=== PATIENT | female | born 1955 | race Caucasian/White ===

== ENCOUNTER → 2018-07-31 | Outpatient (CLI) | payer BC ==
[2018-07-31 11:22] LABS: HCT 43.8 % (34.0-46.0); HGB 14.1 gm/dL (11.4-16.0); MCH 29.5 pg (25.0-35.0); MCHC 32.2 g/dL (31.0-37.0); MCV 91.7 fL (80.0-100.0); Platelet Count 270 k/uL (150-450); RBC 4.78 m/uL (3.80-5.40); RDW 12.9 % (11.5-15.5)
[2018-07-31 11:32] LABS: ALT 24 U/L (9-52); AST 18 U/L (14-36); Albumin 4.2 g/dL (3.5-5.0); Alkaline Phosphatase 97 U/L (38-126); Anion Gap 7 mmol/L; Blood Urea Nitrogen 16 mg/dL (7-17); Calcium 10.4 mg/dL (8.4-10.2); Carbon Dioxide 27 mmol/L (22-30); Chloride 104 mmol/L (98-107); Glucose 178 mg/dL (74-99); Sodium 138 mmol/L (137-145); Total Bilirubin 0.6 mg/dL (0.2-1.3); Total Protein 7.2 g/dL (6.3-8.2)
[2018-07-31 11:39] LABS: INR 0.9 (<1.2); Partial Thromboplastin Time 23.1 sec (22.0-30.0); Prothrombin Time 9.7 sec (9.0-12.0)
[2018-07-31 11:44] LABS: Appearance,Urine Clear (Clear); Bacteria,Urine Rare /hpf; Bilirubin,Urine Negative (Negative); Blood,Urine Negative (Negative); Color,Urine Yellow; Glucose,Urine (UA) Negative (Negative); Ketones,Urine Negative (Negative); Leukocyte Esterase,Urine Large (Negative); Mucus,Urine Rare /hpf; Nitrite,Urine Negative (Negative); PH, Urine 5.5 (5.0-8.0); Protein,Urine Negative (Negative); RBC,Urine 4 /hpf (0-5); Specific Gravity,Urine 1.019 (1.001-1.035); Squamous Epithelial Cell,Urine 3 /hpf (0-4); Urobilinogen,Urine <2.0 mg/dL (<2.0); WBC,Urine 70 /hpf (0-5)
== END | disposition home or self-care (01) ==
LOC: LABPAT 10:01
PROVIDERS: ATTEND Orthopaedic Surgery
DX: Z01.812 Encounter for preprocedural laboratory examination (principal); M16.12 Unilateral primary osteoarthritis, left hip; Z79.01 Long term (current) use of anticoagulants
CPT/HCPCS: 36415; 80053; 81001; 85027; 85610; 85730; 87070

== ENCOUNTER 2018-08-06 06:07 | Inpatient (IN) | payer BC ==
[2018-08-01 14:24] VITALS: BMI 26.1
[~2018-08-06 06:07] MED LIST: ACETAMINOPHEN TAB 500 MG TAB PO ONE; DEXAMETHASONE SOD PHOSPHATE 10 MG/ML 1 ML VIAL IV ONE; MELOXICAM 7.5 MG TAB PO ONE; MIDAZOLAM (PF) 2 MG/2 ML VIAL IV PRN; ONDANSETRON 4 MG/2 ML VIAL IVP ONE; ROPIVACAINE 246.25 MG, EPINEPHrine 0.5 MG, KETOROLAC 30 MG, cloNIDine HCL/PF 80 MCG, WA... MISCELLANE ONE; SCOPOLAMINE 1.5MG/72HR PATCH TRANSDERM ONE; TRANEXAMIC ACID 1,000 MG in SODIUM CHLORIDE 0.9% 100 ML IVPB ONE; ceFAZolin IN SWFI 2 GM/20 ML SYRINGE IVP ONE; fentaNYL (PF) 50 MCG/ML 2 ML AMP IV PRN
[2018-08-06] MEDS: LACTATED RINGERS 1,000 ML IV SCH (08:06)
[2018-08-06] MEDS ORDERED: LIDOCAINE 1% 20 ML VIAL (10MG/ML) FOR IV START INTRADERMA ONE (08:13)
[2018-08-06 08:22] LABS: Glucose,Whole Blood 160 mg/dL (75-99)
[2018-08-06] MEDS ORDERED: MAGNESIUM HYDROXIDE 2,400 MG/10 ML CUP PO PRN (08:44)
[2018-08-06] MEDS ORDERED: ONDANSETRON 4 MG/2 ML VIAL IVP PRN (08:44)
[2018-08-06] MEDS ORDERED: HYDROmorphone 1 MG/ML 1 ML SYRINGE IVP PRN (08:44)
[2018-08-06] MEDS ORDERED: HYDROcodone/APAP 5-325MG 1 EACH TAB PO PRN (08:44)
[2018-08-06] MEDS ORDERED: DIAZEPAM 5 MG TAB PO PRN (08:44)
[2018-08-06] MEDS ORDERED: HYDROmorphone 0.5 MG/0.5 ML SYRINGE IVP PRN ×2 (08:44)
[2018-08-06] MEDS ORDERED: hydrOXYzine PAMOATE 25 MG CAP PO PRN (08:44)
[2018-08-06] MEDS ORDERED: NALOXONE 0.4 MG/ML 1 ML VIAL IV PRN (08:44)
[2018-08-06] MEDS ORDERED: PHENYLEPHRINE-0.9% NACL SYG 1 MG/10 ML SYRINGE ONE (09:08)
[2018-08-06] MEDS ORDERED: TRANEXAMIC ACID 1,000 MG/10 ML VIAL ONE (09:08)
[2018-08-06] MEDS ORDERED: MIDAZOLAM 2 MG/2 ML VIAL ONE (09:08)
[2018-08-06] MEDS ORDERED: fentaNYL (PF) 50 MCG/ML 2 ML AMP ONE (09:08)
[2018-08-06] MEDS ORDERED: HEPARIN SODIUM,PORCINE 10,000 UNIT/ML 1 ML VIAL ONE (09:08)
[2018-08-06] MEDS ORDERED: SODIUM CHLORIDE 0.9% 100 ML BAG ONE (09:08)
[2018-08-06] MEDS ORDERED: LACTATED RINGERS 1,000 ML BAG IV ONE (09:08)
[2018-08-06] MEDS ORDERED: PROPOFOL 10 MG/ML 20 ML VIAL IV ONE (09:08)
[2018-08-06] MEDS ORDERED: ceFAZolin 3,000 MG in SODIUM CHLORIDE 0.9% IRRIGATIO 3,000 ML IRRIGATION ONE (09:13)
[2018-08-06] MEDS ORDERED: LACTATED RINGERS 1,000 ML IV ONE (10:09)
--- NOTE | 2018-08-06 10:43 | P.OP ---
Date of Procedure: 08/06/18 Preoperative Diagnosis: Severe osteoarthritis left hip Postoperative Diagnosis: Severe osteoarthritis left hip Procedure(s) Performed: Left total hip arthroplasty with a direct anterior approach Implants: Mejia and nephew Polarstem size 3 standard Mejia [employer] Nephew R3, 3 hole acetabular shell, 48 mm [employer]ia [employer]hew reflection 6.5 mm cancellus screw, 20 mm 2 [employer]hew R3, XLPE 20 acetabular liner [employer]jia [employer] Nephew Oxinium femoral head 32 m, +4 All components were press-fit. The articulation is Oxinium on polyethylene. Anesthesia: spinal Surgeon: Jamir Dawson Fixing Carpenter #1: Vicenta Aguilar Estimated Blood Loss (ml): 150 Pathology: other (Femoral head) Condition: stable Disposition: PACU Indications for Procedure: After failure of conservative treatment we discussed the surgical and nonsurgical treatment options at length. Patient wishes to proceed with a total hip arthroplasty with a direct anterior approach. Complications specific to this procedure were discussed at length, including but not limited to infection, leg length discrepancy, dislocation, and nerve injury. Patient is aware of all these complications and informed consent was obtained Operative Findings: Operative findings are consistent with severe osteoarthritis of the left hip Description of Procedure: Patient was seen and evaluated in the preoperative area, consent was reviewed, and the surgical site was marked with a skin marker. Patient was then brought to the operating room and given prophylactic antibiotics intravenously. 1 g of Tranexamic acid was also given. A spinal anesthetic was administered by the anesthesia department. The patient was then placed on the Kilbourne table with the bony prominences well-padded. The hip area was then prepped and draped in usual sterile fashion. A universal timeout was then performed, which confirmed the patient's name, surgical site, ALLERGIES, and procedure being performed. Next the incision site was located at 1 cm distal and 1 cm lateral to the anterior superior iliac spine. The skin and subcutaneous tissues were sharply incised. Incision was carefully dissected down to the fascia overlying the tensor fascia angle muscle. This fascia was then incised in line with the incision. Next, using blunt finger dissection, the tensor fascia angle muscle was dissected off its investing fascia. The muscle was then carefully retracted laterally with a cobra retractor over the lateral neck of the femur. Next, the circumflex vessels were identified and cauterized using the AquaMantis device. The anterior hip capsule was then exposed. The capsule was then opened and an inverted T fashion. Cobra retractors were then placed intracapsularly. The proximal femur was then visualized. The femoral neck was then osteotomized appropriate level above the lesser trochanter. Small amount of traction was placed with the Kilbourne table. A small wedge of bone was then removed from the remaining femoral head. Next, using a corkscrew femoral head was easily removed from the acetabulum. On gross visual inspection, the femoral head had complete loss of articular cartilage in multiple periarticular osteophytes. Attention was then turned to the acetabulum. the acetabulum was exposed and any remaining labrum was excised. Sequential reaming of the acetabulum was performed using fluoroscopic guidance. When the appropriate size was reached, a trial was then placed. The position and fit of the trial was checked with fluoroscopy. The trial was then removed. Then, using fluoroscopic guidance, the final implant was impacted at 20 of anteversion and 40 of abduction, and fully seated in the acetabulum. 2 screws were then placed in the acetabulum. Again fluoroscopy was used to check position of the screws. Next, the liner was then impacted, with a 20 elevated liner located in the anterior superior quadrant. Component locking was confirmed. Attention was then directed to the femur. With the aid of the Kilbourne table, the femur was externally rotated to approximately 130, extended, and abducted under the opposite leg. A side hook was then placed under the proximal femur, and the side hook elevator was used to elevate the proximal femur. Retractors were then placed. A capsular release was performed, as well as a release of the conjoined tendon, which afforded excellent visualization of the proximal femur. Next, a box osteotome was used to lateralize the proximal femur. A art handler was then used to locate the femoral canal. Sequential broaching was then performed with appropriate size which afforded excellent fixation in the proximal femur. A trial was then placed with appropriate head and neck, and the hip was gently reduced with the aid of the Kilbourne table. Fluoroscopy was then used to check position of the components, as well as to ensure equal leg lengths. The hip was then gently dislocated and the trials were then removed. Final implants were then impacted and the hip was again reduced. Final fluoroscopic x-rays confirmed that the components were in anatomic position, as well as equal leg lengths. The hip was also taken through range of motion, and found to be stabl e. The hip was then copiously irrigated with antibiotic solution with pulsatile lavage. The hip was then irrigated with Irrisept solution. The soft tissues were then injected with a ropivacaine solution, which consisted of 246.25 mg of ropivacaine, 0.5 mg of epinephrine, 30 mg of Toradol, 80 g of clonidine, and 48.45 mL of sterile water, for a total of 100 mL of fluid injected. A second dose of 1 g of Tranexamic acid was also given. the fascia was then closed with 2-0 strata fix suture. The subcutaneous tissue was closed with 3-0 Vicryl. The subcuticular tissue was closed with 3-0 strata fix suture. The skin was then closed with Dermabond glue and a sterile silver dressing. The patient was then transferred to the recovery room in stable condition. The oceanographer assistant MILAGRO Birch was required due to the complexity of surgery, and the need for skilled surgical tech for positioning, draping, exposure, retraction, and closure of the wound.
[2018-08-06 11:19] LABS: Glucose,Whole Blood 170 mg/dL (75-99)
--- NOTE | 2018-08-06 11:45 | XR ---
EXAMINATION TYPE: XR Hip Limited LT DATE OF EXAM: 08/06/2018 COMPARISON: NONE HISTORY: 63-year-old female status post hip surgery, assess surgical alignment TECHNIQUE: Portable AP view FINDINGS: Image shows placement of left total hip orthoplasty. Both acetabular cup and femoral stem components of the prosthesis appear well seated without periprosthetic fracture. Alignment grossly anatomic. Sof t tissue air related to recent operation. IMPRESSION: Uncomplicated postsurgical appearance left hip total arthroplasty.
[2018-08-06] MEDS: SODIUM CHLORIDE 0.9% 1,000 ML IV SCH ×2 (14:09→16:16)
--- NOTE | 2018-08-06 14:30 | XR ---
EXAMINATION TYPE: XR Hip Limited LT, FL guidance operating room DATE OF EXAM: 08/06/2018 COMPARISON: NONE HISTORY: 63-year-old female anterior left hip replacement FINDINGS: Intraoperative images during left hip total arthroplasty. 2 AP images are submitted. FLUOROSCOPY Fluoroscopy time of 56 seconds was used during left hip total arthroplasty. 2 image/s document/s the procedure. IMPRESSION: Fluoroscopy as above.
[2018-08-06] MEDS: ceFAZolin IN SWFI 2 GM/20 ML SYRINGE IVP SCH (16:16)
[2018-08-06] MEDS: HYDROcodone/APAP 5-325MG 1 EACH TAB PO PRN (17:39)
[2018-08-06] MEDS: ASPIRIN 325 MG TAB PO SCH (20:50)
[2018-08-06] MEDS ORDERED: SENNOSIDES-DOCUSATE SODIUM 1 EACH TAB PO SCH (21:00)
[2018-08-06] MEDS: INSULIN ASPART (NovoLOG) 100 UNIT/ML VIAL SQ SCH (21:15)
[2018-08-06] MEDS: GABAPENTIN 300 MG CAP PO SCH (21:15)
[2018-08-06 21:22] LABS: Glucose,Whole Blood 162 mg/dL (75-99)
--- NOTE | 2018-08-06 23:40 | CONS ---
CONSULTATION DATE OF CONSULTATION: 08/06/2018. REASON FOR CONSULTATION: Medical management, requested by Dr. Dawson. HISTORY: This is a pleasant 63-year-old patient of Dr. Barone from [place]. He has undergone a left total hip arthroplasty. Pain is controlled. Post procedure has already used a walker a bit. No nausea or vomiting. Sitting up in bed. Did tolerate some supper. Chronic stable medical conditions include diabetes, hypertension, hyperlipidemia, hypothyroid. REVIEW OF SYSTEMS: CONSTITUTIONAL: None. HEENT: None. RESPIRATORY: None. GASTROINTESTINAL: None. MUSCULOSKELETAL: Arthritic pain in joints. DERMATOLOGICAL, HEMATOLOGIC, LYMPHATIC: None. PSYCHIATRY: None. NEUROLOGICAL: None. PAST MEDICAL HISTORY: Diabetes mellitus type 2, hyperlipidemia, hypertension, osteoarthritis, hypothyroid. PAST SURGICAL HISTORY: Cholecystectomy. SOCIAL HISTORY: Smoked until 1984. . No alcohol. FAMILY HISTORY: Pancreatic cancer. HOME MEDICATIONS: 1. Ozenpi 0.5 mg subcu on Sunday. 2. Levothyroxine 200 mcg daily. 3. Ibuprofen 600 mg t.i.d. 4. Neurontin 600 mg t.i.d. 5. Monopril 40 mg p.o. daily. 6. Vitamin D3, 25 units on Fridays. 7. Lipitor 40 mg p.o. daily. 8. Tylenol 1500 mg t.i.d. ALLERGIES: CODEINE, IODINE. PHYSICAL EXAMINATION: Temperature 98.9, pulse 94, respirations 16, blood pressure 110/60, pulse ox 99% on room air. GENERAL APPEARANCE: Average built, sitting up, awake. EYES: Pupils are normal. Conjunctivae normal. HEENT: External appearance of nose and ears normal. Oral cavity normal. NECK: JVD not raised. Mass not palpable. Respiratory effort normal. LUNGS: Fair air entry. CARDIOVASCULAR: First and second sounds normal. No edema. ABDOMEN: Soft, nontender. Liver and spleen not palpable. LYMPHATIC: No lymph nodes palpable in the neck and axilla. PSYCHIATRY: Alert and oriented x3. Mood and affect normal. NEUROLOGIC: Pupils equal. Cranial nerves grossly intact. Power and sensation grossly intact. MUSCULOSKELETAL: Dressing over the left hip with limited range of motion. Evidence of osteoarthritis in the hands. LABS: Accu-/cheks 168, 170. The patient's blood work from 07/31/2018 shows a white count of 9, hemoglobin 14.1, creatinine 0.5. ASSESSMENT: 1. Left total hip arthroplasty. 2. Primary osteoarthritis. 3. Hypothyroidism. 4. Essential hypertension. 5. Hyperlipidemia. 6. Diabetes mellitus type 2. PLAN: The patient has got pain control in place. The patient is getting aspirin for DVT prophylaxis per Dr. Dawson. The patient gets Ozenpi every Sunday. Sugars are reasonably controlled at home. Accu-Cheks will be followed here. Care was discussed the patient. Questions were answered. Thank you, Dr. Dawson. MMANTOINEL / SONAN: [id number] /
[2018-08-07] MEDS: ceFAZolin IN SWFI 2 GM/20 ML SYRINGE IVP SCH (00:25)
[2018-08-07] MEDS: HYDROcodone/APAP 5-325MG 1 EACH TAB PO PRN ×3 (00:25→11:10)
[2018-08-07] MEDS: SODIUM CHLORIDE 0.9% 1,000 ML IV SCH ×2 (00:29→11:36)
[2018-08-07] MEDS: LACTATED RINGERS 1,000 ML IV SCH (05:47)
[2018-08-07] MEDS ORDERED: LEVOTHYROXINE 100 MCG TAB PO SCH (06:30)
[2018-08-07 07:06] LABS: Glucose,Whole Blood 160 mg/dL (75-99)
[2018-08-07] MEDS: INSULIN ASPART (NovoLOG) 100 UNIT/ML VIAL SQ SCH ×2 (07:32→11:36)
[2018-08-07] MEDS: GABAPENTIN 300 MG CAP PO SCH (07:33)
[2018-08-07] MEDS: ASPIRIN 325 MG TAB PO SCH (07:34)
[2018-08-07 08:47] VITALS: BP 129/74; PULSE 94; RESP 16; TEMP 98.1
[2018-08-07] MEDS ORDERED: MELOXICAM 7.5 MG TAB PO SCH (09:00)
[2018-08-07] MEDS ORDERED: LISINOPRIL 20 MG TAB PO SCH (09:00)
[2018-08-07] MEDS ORDERED: ATORVASTATIN 40 MG TAB PO SCH (09:00)
--- NOTE | 2018-08-07 09:10 | P.DS ---
Providers Date of admission: 08/06/18 07:10 Expected date of discharge: 08/07/18 Attending physician: Jamir Dawson Consults: 08/06/18 08:44 Consult Physician Routine Consulting Provider: Yosef Barone Consult Reason/Comments: medical management Do you want consulting provider notified?: Yes 08/06/18 13:18 Consult Physician Routine Consulting Provider: Otto Lobo Consult Reason/Comments: medical management Do you want consulting provider notified?: Yes Primary care physician: Yosef Barone - Discharge Diagnosis(es) (1) Osteoarthritis of left hip Current Visit: Yes Status: Acute (2) Status post total hip replacement, left Current Visit: Yes Status: Acute Hospital Course: This is a 63-year-old female with known history of degenerative arthritis of the left hip. The patient presents for evaluation. After discussion and consideration patient elects to proceed with total hip arthroplasty. The patient is seen preoperatively by Dr. Dawson and medically cleared for surgery by their primary care physician. Patient is admitted to [facility] on 08/06/2018 for total hip arthroplasty. The procedures performed without complication or sequelae. The patient is doing well postoperatively. Labs and vital signs are stable on day of discharge. On day of discharge patient's hip incision is healing well. There is minimal erythema. There is no drainage noted at this time. There is minimal soft tissue swelling to the hip and thigh. Patient has full foot and ankle motion without difficulty or pain. Calf is soft and nontender to palpation. Neurovascular status to the left lower extremity is intact. Patient is discharged home in good condition. Opioid start talking form is reviewed and signed at patient bedside. Please see med rec for accurate list of home medications. Plan - Discharge Summary Discharge Rx Participant: Yes New Discharge Prescriptions: New Aspirin 325 mg PO BID #60 tab HYDROcodone/APAP 5-325MG [Molina 5-325] 1 - 2 tab PO Q6HR PRN #56 tab PRN Reason: Pain Sennosides [Senokot] 1 tab PO BID #60 tablet No Action Gabapentin [Neurontin] 600 mg PO TID Atorvastatin [Lipitor] 40 mg PO DAILY Fosinopril Sodium [Monopril] 40 mg PO QAM Semaglutide [Ozempic] 0.5 mg SQ FR Levothyroxine Sodium 200 mcg PO QAM Ibuprofen [Motrin Ib] 600 mg PO TID Cholecalciferol (Vitamin D3) [Vitamin D3] 25,000 unit PO FR Acetaminophen [Tylenol Extra Strength] 1,500 mg PO TID Discharge Medication List Acetaminophen [Tylenol Extra Strength] 1,500 mg PO TID 08/01/18 [History] Atorvastatin [Lipitor] 40 mg PO DAILY 08/01/18 [History] Cholecalciferol (Vitamin D3) [Vitamin D3] 25,000 unit PO FR 08/01/18 [History] Fosinopril Sodium [Monopril] 40 mg PO QAM 08/01/18 [History] Gabapentin [Neurontin] 600 mg PO TID 08/01/18 [History] Ibuprofen [Motrin Ib] 600 mg PO TID 08/01/18 [History] Levothyroxine Sodium 200 mcg PO QAM 08/01/18 [History] Semaglutide [Ozempic] 0.5 mg SQ FR 08/01/18 [History] Aspirin 325 mg PO BID #60 tab 08/07/18 [Rx] HYDROcodone/APAP 5-325MG [Molina 5-325] 1 - 2 tab PO Q6HR PRN #56 tab 08/07/18 [Rx] Sennosides [Senokot] 1 tab PO BID #60 tablet 08/07/18 [Rx] Follow up Appointment(s)/Referral(s): Jamir Dawson DO [Doctor of Osteopathic Medicine] - 2 Weeks Activity/Diet/Wound Care/Special Instructions: Weightbearing as tolerated with walker. Leave dressing intact. Dressing may be removed by home care nurse or by patient in 10 days. May shower with dressing on. Please follow-up with [facility] in 2 weeks and call with any questions or concerns, . Discharge Disposition: HOME WITH HOME HEALTH SERVICES
[2018-08-07 10:14] LABS: Basophils % (A) 0 %; Eosinophils % (A) 0 %; HCT 37.4 % (34.0-46.0); HGB 12.2 gm/dL (11.4-16.0); Lymphocytes # (A) 1.2 k/uL (1.0-4.8); Lymphocytes % (A) 11 %; MCHC 32.7 g/dL (31.0-37.0); MCV 91.9 fL (80.0-100.0); Mean Platelet Volume 7.2; Monocytes # (A) 0.7 k/uL (0-1.0); Monocytes % (A) 7 %; Neutrophils # (A) 8.3 k/uL (1.3-7.7); Neutrophils % (A) 80 %; Platelet Count 328 k/uL (150-450); RBC 4.08 m/uL (3.80-5.40); RDW 13.2 % (11.5-15.5); WBC 10.4 k/uL (3.8-10.6)
[2018-08-07 12:05] LABS: Glucose,Whole Blood 199 mg/dL (75-99)
--- NOTE | 2018-08-08 06:18 | PN ---
PROGRESS NOTE DATE OF SERVICE: 08/07/2018 PRESENTING COMPLAINT: Left hip surgery. INTERVAL HISTORY: Patient is status post left hip surgery. Some pain is present. Overall doing better. Did work with therapy. No nausea, vomiting. Did tolerate her breakfast. REVIEW OF SYSTEMS: Done for constitutional, cardiovascular, GI, pulmonary; relevant findings as above. CURRENT MEDICATIONS: Current medications are reviewed. PHYSICAL EXAMINATION: On examination, temperature 98.1, pulse 94, respirations 16, blood pressure 129/74, pulse ox 97% on room air. GENERAL APPEARANCE: Sitting up, awake. EYES: Pupils equal. Conjunctivae normal. NECK: JVD not raised. Mass not palpable. RESPIRATORY: Effort normal. LUNGS: Are clear. CARDIOVASCULAR: First and second sounds normal. No edema. ABDOMEN: Soft, nontender. Liver and spleen not palpable. PSYCHIATRY: Alert and oriented x3. Mood and affect normal. INVESTIGATIONS: White count 10.4, hemoglobin 12.2. ASSESSMENT: 1. Left total hip arthroplasty. 2. Primary osteoarthritis. 3. Hypothyroidism. 4. Essential hypertension. 5. Hyperlipidemia. 6. Diabetes mellitus type 2. PLAN: Patient is stable, doing well. Continue current medication and treatment plan. Care was discussed with the patient. MMODL / IJN: [id number] /
== END 2018-08-07 15:10 | disposition home health service (06) | DRG 470 ==
LOC: 2ORMAIN 07:10 → 4SSUR 13:12
PROVIDERS: ADMIT Orthopaedic Surgery; ATTEND Orthopaedic Surgery
PROC: 0SRB06A Replacement of Left Hip Joint with Oxidized Zirconium on Polyethylene Synthetic Substitute, Uncemented, Open Approach (ICD-10-PCS; principal; 2018-08-06 09:10)
DX: M16.12 Unilateral primary osteoarthritis, left hip (principal); E03.9 Hypothyroidism, unspecified; E11.9 Type 2 diabetes mellitus without complications; E78.5 Hyperlipidemia, unspecified; I10 Essential (primary) hypertension; Z79.890 Hormone replacement therapy; Z79.899 Other long term (current) drug therapy; Z80.0 Family history of malignant neoplasm of digestive organs; Z87.891 Personal history of nicotine dependence; Z90.49 Acquired absence of other specified parts of digestive tract
CPT/HCPCS: 73501; 85025; 86850; 86891; 86900; 86901; 88300